=== PATIENT | female | born 1990 | race Caucasian/White ===

== ENCOUNTER 2021-08-16 09:32 | Outpatient (CLI) | payer BC ==
[2021-08-16 12:47] LABS: RBC (AUTOMATED) 100 10^6 (0); WBC (AUTOMATED 0 10^3 (0-5)
[2021-08-16 12:58] LABS: GLUCOSE,CSF 56 mg/dL (50-80); TOTAL PROTEIN,CSF 27 mg/dL (20-45)
[2021-08-18 13:14] LABS: CSF IGG INDEX 0.6 (0.0-0.7); IMMUNOGLOBULIN G, QN, SERUM 1064 mg/dL (586-1602)
[2021-08-18 18:10] LABS: MYELIN BASIC PROTEIN, CSF 3.3 ng/mL (0.0-2.9)
== END 2021-08-16 16:25 | disposition home or self-care (01) ==
LOC: MRI 09:32 → MED SURG 4 11:31 → MRI 16:25
PROVIDERS: Ophthalmology
DX: H47.11 Papilledema associated with increased intracranial pressure (principal)
CPT/HCPCS: 36415; 70543; 70553; 82040; 82784; 82945; 83873; 83916; 84157; 89051; A9577

== ENCOUNTER 2021-12-15 10:18 | Emergency (ER) | payer BC ==
[2021-12-15 11:30] LABS: HEMOGLOBIN 13.6 gm/dl (12.3-15.3); RED BLOOD COUNT 4.43 M/UL (4.00-5.10); WHITE BLOOD COUNT 10.1 K/UL (4.5-11.0)
[2021-12-15 12:33] LABS: BUN/CREATININE RATIO 9 (0-10)
[2021-12-15] MEDS ORDERED: ONDANSETRON ODT4 MG PO (13:28)
== END 2021-12-15 13:47 | disposition home or self-care (01) ==
LOC: ER1 10:18
PROVIDERS: Nurse Practitioner
DX: R19.7 Diarrhea, unspecified (principal); R10.10 Upper abdominal pain, unspecified; R11.0 Nausea; Z20.822 Contact with and (suspected) exposure to COVID-19
CPT/HCPCS: 0240U; 80053; 81001; 82150; 85025; 96374; 99284; J2405

== ENCOUNTER 2021-12-19 11:10 | Emergency (ER) | payer BC ==
[~2021-12-19 11:10] MED LIST: ONDANSETRON ODT4 MG PO
[2021-12-19 12:47] LABS: HEMOGLOBIN 14.4 gm/dl (12.3-15.3); RED BLOOD COUNT 4.75 M/UL (4.00-5.10); WHITE BLOOD COUNT 10.2 K/UL (4.5-11.0)
[2021-12-19 13:14] LABS: BUN/CREATININE RATIO 8 (0-10)
[2021-12-19] MEDS ORDERED: ONDANSETRON ODT4 MG SL (17:23)
== END 2021-12-19 17:45 | disposition home or self-care (01) ==
LOC: ER1 11:10
PROVIDERS: Physician Assistant
DX: R10.11 Right upper quadrant pain (principal); Z20.822 Contact with and (suspected) exposure to COVID-19; R19.7 Diarrhea, unspecified; I10 Essential (primary) hypertension; R11.0 Nausea
CPT/HCPCS: 76705; 80053; 81001; 83690; 84703; 85025; 99284; Q9967

== ENCOUNTER 2022-01-28 15:16 | Emergency (ER) | payer BC ==
[~2022-01-28 15:16] MED LIST changes: +ONDANSETRON ODT4 MG SL
[2022-01-28 16:40] LABS: HEMOGLOBIN 13.4 gm/dl (12.3-15.3); RED BLOOD COUNT 4.41 M/UL (4.00-5.10); WHITE BLOOD COUNT 11.5 K/UL (4.5-11.0)
[2022-01-28 17:01] LABS: BUN/CREATININE RATIO 11 (0-10)
[2022-01-28] MEDS ORDERED: VISTARIL 50 MG50 MG PO (19:32)
== END 2022-01-28 19:51 | disposition home or self-care (01) ==
LOC: ER1 15:16
PROVIDERS: Physician Assistant
DX: R07.89 Other chest pain (principal); F41.9 Anxiety disorder, unspecified; I10 Essential (primary) hypertension; Z88.8 Allergy status to other drugs, medicaments and biological substances
CPT/HCPCS: 71045; 80053; 82550; 82553; 84484; 85025; 93005; 99285